=== PATIENT | female | born 1970 | race Caucasian/White ===

== ENCOUNTER 2017-03-05 18:59 | Emergency (ER) | payer BC ==
[2017-03-05] MEDS ORDERED: clonazePAM 0.5 MG TAB ONE (20:15)
== END 2017-03-05 20:20 | disposition home or self-care (01) ==
LOC: NAV ERS 18:59
DX: M19.012 Primary osteoarthritis, left shoulder (principal); M19.011 Primary osteoarthritis, right shoulder; F41.9 Anxiety disorder, unspecified; E03.9 Hypothyroidism, unspecified; K85.90 Acute pancreatitis without necrosis or infection, unspecified; E78.5 Hyperlipidemia, unspecified; I10 Essential (primary) hypertension; F32.9 Major depressive disorder, single episode, unspecified; Z79.891 Long term (current) use of opiate analgesic; Z79.899 Other long term (current) drug therapy
CPT/HCPCS: 99283

== ENCOUNTER → 2020-03-30 | Outpatient (CLI) | payer BC, MEDICARE ==
[~2020-03-30] MED LIST: Iopamidol 370 76% 100 ML VIAL ONE
--- NOTE | 2020-03-30 12:28 | CT ---
CT ABDOMEN AND PELVIS: Date: 03/30/2020 COMPARISON: None. HISTORY: Abdominal pain and bloating. TECHNIQUE: Axial CT imaging obtained at 5 mm intervals from the lung bases through the pubic symphysis with IV a nd oral contrast. Coronal and sagittal reformatted imaging obtained. FINDINGS: Partially imaged lung bases appear grossly unremarkable. The superior aspect of the right lobe of the liver is not fully imaged on this examination. Gallbladder is surgically absent. Partially imaged he patic parenchyma demonstrates no acute findings. The spleen, pancreas, adrenal glands, and kidneys de monstrate no acute findings. There is a tiny posterior mid pole right renal hypodensity measuring in the 4.0 mm range, too small to characterize. There is focal wall thickening of the sigmoid colon measuring approximately 6-7 cm in length. There a re numerous diverticula in this region. There is also mild pericolonic fat stranding. Findings are mo st consistent with a cute diverticulitis of the sigmoid colon. No extraluminal contrast media or gas. No evidence for abscess or bowel obstruction. There are also diverticula within the descending colon . Nonspecific mildly prominent inguinal lymph node noted on the right measuring 1.0 cm on axial image 6 9. No discrete pelvic lymphadenopathy is noted. No enlarged lymph nodes are noted within the retroperitoneum. On axial image [id number], there is a calcification in the left hemipelvis measuring up to approximately 5 .0 mm. This appears to possibly be within the distal left ureter. No evidence for obstructive uropath y is appreciated. Review of the osseous structures demonstrate no worrisome lytic or blastic bone lesion. There is mult ilevel lower lumbar spine postoperative change with metallic hardware associated with the L4, L5, and S1 levels. Multilevel lower lumbar spine facet hypertrophic change is present. IMPRESSION: 1. There is wall thickening of the sigmoid colon with associated diverticular disease and adjacent f at stranding. Findings are suspicious for diverticulitis. Recommend follow-up direct visualization vi a colonoscopy following treatment of the acute symptoms to exclude an underlying mass lesion. 2. Findings suggesting a stone within the distal left ureter. No evidence for obstructive uropathy. Correlation with a follow-up CT abdomen and pelvis with and without contrast utilizing a CT urogram p rotocol is advised. CODE T. POS: [facility]
== END ==
LOC: NAV CT 09:05
PROVIDERS: ATTEND Physician Assistant Medical
DX: R10.9 Unspecified abdominal pain (principal); R19.4 Change in bowel habit; R11.2 Nausea with vomiting, unspecified; M62.81 Muscle weakness (generalized); R19.00 Intra-abdominal and pelvic swelling, mass and lump, unspecified site; K57.30 Diverticulosis of large intestine without perforation or abscess without bleeding; K63.89 Other specified diseases of intestine
CPT/HCPCS: 74177; Q9967

== ENCOUNTER 2020-12-09 13:06 | Outpatient (CLI) | payer MEDICARE ==
--- NOTE | 2020-12-09 14:30 | RAD ---
CHEST TWO VIEW: 12/09/20 HISTORY: Dyspnea. COMPARISON: None. FINDINGS: On the lateral radiograph there is a thin nodular density projecting over the superior segment left l ower lobe. No pneumothorax. No effusion. Cardiac silhouette is within normal limits. No acute osseou s abnormality. IMPRESSION: Nodular density projects in the superior segment left lower lobe on the lateral radiograph. A nonemer gent follow-up chest CT recommended. Code T. Code LN. POS: HOME
== END 2020-12-09 13:07 | disposition home or self-care (01) ==
LOC: NAV RAD 13:06
PROVIDERS: ATTEND Family Medicine
DX: J98.8 Other specified respiratory disorders (principal); R05 Cough; J98.4 Other disorders of lung
CPT/HCPCS: 71046

== ENCOUNTER 2021-07-27 19:00 | Outpatient (CLI) | payer MEDICARE | END 2021-07-27 19:01 | disposition home or self-care (01) | LOC: NAV CT 19:00 | PROVIDERS: ATTEND Family Medicine | DX: K62.5 Hemorrhage of anus and rectum (principal); R91.1 Solitary pulmonary nodule; R10.84 Generalized abdominal pain; K57.92 Diverticulitis of intestine, part unspecified, without perforation or abscess without bleeding; R10.13 Epigastric pain; K29.50 Unspecified chronic gastritis without bleeding; R19.04 Left lower quadrant abdominal swelling, mass and lump; K57.30 Diverticulosis of large intestine without perforation or abscess without bleeding | CPT/HCPCS: 71250; 74177 ==

== ENCOUNTER 2022-01-04 13:25 | Emergency (ER) | payer MEDICARE ==
[2022-01-04] MEDS ORDERED: Ketorolac Tromethamine 30 MG/ML VIAL ONE (14:00)
[2022-01-04] MEDS ORDERED: diphenhydrAMINE 50 MG/ML VIAL ONE (14:00)
[2022-01-04] MEDS ORDERED: methylPREDNISolone Sod Succ/PF 125 MG/2 ML VIAL ONE (14:01)
[2022-01-04] MEDS ORDERED: Famotidine/PF 20 mg/2ml Vial ONE (14:01)
[2022-01-04] MEDS ORDERED: Cefepime 2 GM VIAL ONE (14:01)
[2022-01-04] MEDS ORDERED: Sodium Chloride 0.9% 100 ML ONE (14:02)
[2022-01-04 14:06] LABS: #Lymphocytes 0.8 thou/uL (1.20-3.40); #Monocytes 0.4 thou/uL (0.11-0.59); #Neutrophils 5.3 thou/uL (1.40-6.50); %Basophils 0.5 % (0.0-1.0); %Eosinophils 0.2 % (0.0-10.0); %Lymphocytes 11.8 % (21.0-51.0); %Monocytes 5.9 % (0.0-10.0); %Neutrophils 81.5 % (42.0-75.0); Hemoglobin 13.3 g/dL (12.0-16.0); Mean Corpuscular HGB CONC 31.7 g/dL (32.0-36.0); Mean Corpuscular Hemoglobin 31.4 pg (27.0-31.0); Mean Corpuscular Volume 99.1 fL (78.0-98.0); Mean Platelet Volume 9.3 fL (7.4-10.4); Platelet Count 268 thou/uL (130-400); RBC Distribution Width 11.5 % (11.5-14.5); Red Blood Cell (RBC) Count 4.24 mill/uL (4.20-5.40); White Blood Cell (WBC) Count 6.5 thou/uL (4.8-10.8)
[2022-01-04 14:23] LABS: ALT (SGPT) 91 U/L (8-55); AST (SGOT) 54 U/L (5-34); Albumin 4.7 g/dL (3.5-5.0); Alkaline Phosphatase 122 U/L (40-110); Anion Gap 20 mmol/L (10-20); BUN (Urea Nitrogen) 18 mg/dL (9.8-20.1); Bilirubin, Total 0.8 mg/dL (0.2-1.2); Calc. Creatinine Clearance 0 mL/min (70-130); Calcium 10.6 mg/dL (7.8-10.44); Carbon Dioxide 23 mmol/L (22-29); Chloride 97 mmol/L (98-107); Globulin 4.3 g/dL (2.4-3.5); Glucose 139 mg/dL (70-105); Potassium 3.9 mmol/L (3.5-5.1); Sodium 136 mmol/L (136-145)
[2022-01-04 14:39] LABS: Bilirubin Negative (Negative); Blood, Urine Negative (Negative); Clarity Clear (Clear); Glucose, Urine (Dipstick) Negative (Negative); Ketone, Urine 15 mg/dL (Negative); Leukocyte Negative (Negative); Nitrite Negative (Negative); Protein, Urine (Dipstick) Negative (Neg-Trace); Specific Gravity, Urine 1.015 (1.005-1.030); Urobilinogen 0.2 mg/dL (Less than 2)
[2022-01-04] MEDS ORDERED: Sodium Chloride 0.9% 250 ML 250 ML ONE (14:52)
== END 2022-01-04 15:17 | disposition short-term general hospital (02) ==
LOC: NAV ERS 13:25
DX: M79.89 Other specified soft tissue disorders (principal); R05.9 Cough, unspecified; M79.671 Pain in right foot; I10 Essential (primary) hypertension; E03.9 Hypothyroidism, unspecified; E78.5 Hyperlipidemia, unspecified; E78.00 Pure hypercholesterolemia, unspecified; Z87.19 Personal history of other diseases of the digestive system; Z79.899 Other long term (current) drug therapy
CPT/HCPCS: 36415; 71045; 80053; 81003; 83605; 85025; 87040; 87086; 96365; 96375; J0692; J1200; J1885; J2930; J3370; J3490; J7050; S0028

== ENCOUNTER 2023-01-11 16:14 | Emergency (ER) | payer MEDICARE ==
[2023-01-11 17:25] LABS: #Basophils 0.1 thou/uL (0.0-0.2); #Eosinphils 0.3 thou/uL (0.0-0.7); #Lymphocytes 1.4 thou/uL (1.20-3.40); #Monocytes 0.6 thou/uL (0.11-0.59); #Neutrophils 3.4 thou/uL (1.40-6.50); %Eosinophils 4.9 % (0.0-10.0); %Lymphocytes 24.1 % (21.0-51.0); %Monocytes 10.1 % (0.0-10.0); %Neutrophils 59.8 % (42.0-75.0); Hemoglobin 14.6 g/dL (12.0-16.0); Mean Corpuscular HGB CONC 32.3 g/dL (32.0-36.0); Mean Corpuscular Hemoglobin 31.8 pg (27.0-31.0); Mean Corpuscular Volume 98.6 fl (78.0-98.0); Mean Platelet Volume 7.9 fL (7.4-10.4); Platelet Count 251 10x3/uL (130-400); RBC Distribution Width 11.5 % (11.5-14.5); Red Blood Cell (RBC) Count 4.58 mill/uL (4.20-5.40); White Blood Cell (WBC) Count 5.6 10x3/uL (4.8-10.8)
[2023-01-11 17:39] LABS: ALT (SGPT) 48 U/L (8-55); AST (SGOT) 73 U/L (5-34); Albumin 4.7 g/dL (3.5-5.0); Alkaline Phosphatase 77 U/L (40-110); Anion Gap 16 mmol/L (10-20); BUN (Urea Nitrogen) 16 mg/dL (9.8-20.1); Bilirubin, Total 0.4 mg/dL (0.2-1.2); Calc. Creatinine Clearance 0 mL/min (70-130); Calcium 9.6 mg/dL (7.8-10.44); Carbon Dioxide 21 mmol/L (22-29); Chloride 101 mmol/L (98-107); Estimated GFR 69; Globulin 3.2 g/dL (2.4-3.5); Glucose 117 mg/dL (70-105); Magnesium 1.6 mg/dL (1.6-2.6); Protein, Total 7.9 g/dL (6.0-8.3); Sodium 134 mmol/L (136-145)
[2023-01-11] MEDS ORDERED: Morphine 4 MG/ML VIAL ONE (19:33)
== END 2023-01-11 20:32 | disposition left against medical advice (07) ==
LOC: NAV ERS 16:14
DX: R51.9 Headache, unspecified (principal); E03.9 Hypothyroidism, unspecified; E78.00 Pure hypercholesterolemia, unspecified; I10 Essential (primary) hypertension; K58.9 Irritable bowel syndrome, unspecified; J42 Unspecified chronic bronchitis; Z79.899 Other long term (current) drug therapy
CPT/HCPCS: 36415; 80053; 83735; 85025; 96372; 99284; J2270